=== PATIENT | male | born 1970 | race Caucasian/White ===

== ENCOUNTER 2021-09-27 15:43 | Emergency (ER) | payer BC, OTHER ==
[~2021-09-27] VITALS: Ht 172.7 cm; Wt 88.0 kg
[2021-09-27 15:48] VITALS: BP 162/109
--- NOTE | 2021-09-27 16:00 | NUR ---
PT TAKEN TO CCT VIA W/C
--- NOTE | 2021-09-27 16:00 | NUR ---
pt being taken to ct via wheelchair
--- NOTE | 2021-09-27 16:44 | NUR ---
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 pt denies loc, syncope, or blurry vision. states he has nausea no vomiting and feels dizzy. a&o x4 with even and steady gait. lungs clear bl, heart rate even and regular. pt denies dysuria, hematuria, urinary frequency or retention. pt denies any fever, cp, sob, or cough at this time. pt states pain is 8/10 at this time. vss. patient positioned for comfort. hob elevated. bed down. ermd made aware of pt. pmh: hld nka med: tylenol 2 po prior to arrival
[2021-09-27 16:50] VITALS: BP 162/109
--- NOTE | 2021-09-27 16:50 | NUR ---
Patient discharged with v/s stable. Written and verbal after care instructions given and explained. Patient verbalized understanding. Ambulatory with steady gait. All questions addressed prior to discharge. Advised to follow up with PMD.
== END 2021-09-27 16:50 | disposition home or self-care (01) ==
LOC: MED 15:43
DX: S06.0X9A Concussion with loss of consciousness of unspecified duration, initial encounter (principal); R11.0 Nausea; R42 Dizziness and giddiness; W21.03XA Struck by baseball, initial encounter; Y93.89 Activity, other specified; Y92.89 Other specified places as the place of occurrence of the external cause; Y99.8 Other external cause status
CPT/HCPCS: 70450; 99284